=== PATIENT | male | born 1995 | race Caucasian/White ===

== ENCOUNTER 2021-12-26 10:55 | Day surgery (SDC) | payer BC, OTHER ==
[~2021-12-26] VITALS: Ht 182.9 cm; Wt 113.3 kg
[~2021-12-26 10:55] MED LIST: ALBU90OI INH; AMPDEX10CR PO; AMPDEX5 PO; ERGO50000 PO; ESCI20 PO; LORA.5 PO; PROP60 PO; VALA500 PO; ZOLOFT25 MG PO
--- NOTE | 2021-12-26 14:29 | NUR ---
12/26/21 1429 PAT GONSALEZ History, Chart, Medications and Allergies reviewed before start of procedure. Patient confirms NPO status and agrees with scheduled surgery. 3-LEAD EKG REVIEWED WITH PHYSICIAN PRIOR TO START OF PROCEDURE. MONITOR INTACT WITH CONTINUOUS PULSE OXIMETRY AND INTERMITTENT BP. PATIENT DETERMINED TO BE ASA APPROPRIATE FOR PROPOFOL SEDATION PRIOR TO START OF PROCEDURE BY DR. ZHANG.
--- NOTE | 2021-12-26 15:45 | NUR ---
Discharge instructions reviewed with patient. Patient verbalizes understanding. Copy given to patient to take home. Patient States Post-Procedure ride home has been arranged. Discharged via wheelchair to private car for ride home. ALL BELONGINGS RETURNED TO PATIENT THAT [facility].
== END 2021-12-26 15:55 | disposition home or self-care (01) ==
LOC: ORSCMMR 10:55 → ORD 14:00 → ORSCMMR 14:00
PROVIDERS: Surgery
PROC: 0DBE8ZX Excision of Large Intestine, Via Natural or Artificial Opening Endoscopic, Diagnostic (ICD-10-PCS; principal; 2021-12-26 14:00)
DX: K52.9 Noninfective gastroenteritis and colitis, unspecified (principal); F41.8 Other specified anxiety disorders; K50.00 Crohn's disease of small intestine without complications; K64.8 Other hemorrhoids; E66.9 Obesity, unspecified; Z68.34 Body mass index [BMI] 34.0-34.9, adult; Z79.899 Other long term (current) drug therapy
CPT/HCPCS: 88305; J2250; J2704; J7120

== ENCOUNTER 2022-03-05 23:38 | Emergency (ER) | payer BC, OTHER ==
[~2022-03-05] VITALS: Ht 182.9 cm; Wt 115.7 kg
[2022-03-06 01:10] LABS: BASOPHILS ABSOLUTE AUTO 0.04 K/mm3 (0.00-0.23); BASOPHILS PERCENT AUTO 0 % (0-2); EOSINOPHILS ABSOLUTE AUTO 0.01 K/mm3 (0.00-0.68); EOSINOPHILS PERCENT AUTO 0 % (0-6); Hematocrit 46.4 % (37.0-53.0); Hemoglobin 15.5 g/dL (13.5-17.5); IMMATURE GRAN ABSOLUTE AUTO 0.03 K/mm3 (0.00-0.10); IMMATURE GRAN PERCENT AUTO 0 % (0-1); LYMPHOCYTES PERCENT AUTO 10 % (21-46); MONOCYTES PERCENT AUTO 2 % (4-13); Mean Corpuscular HGB 29.3 pg (26.0-34.0); Mean Corpuscular HGB Conc 33.4 g/dL (31.5-36.5); Mean Corpuscular Volume 88 fL (80-100); Mean Platelet Volume 9.8 fL (9.1-12.4); NEUTROPHILS PERCENT AUTO 88 % (41-73); Platelet Count 277 K/mm3 (150-400); RDW Coefficient Variation 11.8 % (11.7-14.2); RDW Standard Deviation 37.8 fL (35.1-46.3); Red Blood Cell Count 5.29 M/mm3 (4.30-5.90); White Blood Cell Count 12.28 K/mm3 (4.00-11.30)
[2022-03-06 01:28] LABS: Alanine Aminotransfer (ALT/SGP 63 U/L (12-78); Albumin, Blood 4.1 g/dL (3.4-5.0); Alk Phos 67 U/L (50-136); Anion Gap 7 mmol/L (6-16); Aspartate Aminotrans (AST/SGOT 32 U/L (12-37); Bilirubin, Total 0.3 mg/dL (0.1-1.0); Blood Urea Nitrogen 13 mg/dL (8-24); Bun/Creatinine Ratio 16.9 (12.0-20.0); CO2, Blood 23 mmol/L (21-32); Calcium, Blood 9.5 mg/dL (8.5-10.1); Chloride, Blood 107 mmol/L (98-108); Creatinine, Blood 0.77 mg/dL (0.60-1.20); Glomerular Filtration Rate >60 (60-); Glucose, Blood 142 mg/dL (70-99); Potassium, Blood 4.9 mmol/L (3.5-5.5); Sodium, Blood 137 mmol/L (136-145); Total Protein, Blood 8.1 g/dL (6.4-8.2)
== END 2022-03-06 02:11 | disposition home or self-care (01) ==
LOC: ER 23:38
PROVIDERS: Emergency Medicine
DX: R10.9 Unspecified abdominal pain (principal); Z88.6 Allergy status to analgesic agent; Z79.899 Other long term (current) drug therapy
CPT/HCPCS: 36415; 80053; 83690; 85025; 96374; 96375; 99284-25; A9270; J1885; J2405

== ENCOUNTER 2022-05-14 22:37 | Emergency (ER) | payer BC, OTHER ==
[~2022-05-14] VITALS: Ht 182.9 cm; Wt 117.9 kg
[2022-05-15 00:06] LABS: Influenza A, PCR NEGATIVE (NEGATIVE); Influenza B, PCR NEGATIVE (NEGATIVE); Resp Syncytial Virus, PCR NEGATIVE (NEGATIVE); SARS-Cov-2 (COVID-19) PCR, MMC NEGATIVE (NEGATIVE)
== END 2022-05-15 01:25 | disposition home or self-care (01) ==
LOC: ER 22:37
PROVIDERS: Physician Assistant
DX: R51.9 Headache, unspecified (principal); Z88.8 Allergy status to other drugs, medicaments and biological substances; Z20.822 Contact with and (suspected) exposure to COVID-19
CPT/HCPCS: 0241U; 70450; 70496; 96374; 96375; J1200; J2765; J7030; Q9967

== ENCOUNTER 2022-05-17 22:40 | Emergency (ER) | payer BC, OTHER ==
[~2022-05-17] VITALS: Ht 182.9 cm; Wt 117.9 kg
[2022-05-17] MEDS ORDERED: PARO10 PO (23:43)
[2022-05-17] MEDS ORDERED: PARO10 (23:45)
[2022-05-17] MEDS ORDERED: PROP10 PO (23:48)
== END 2022-05-18 02:02 | disposition home or self-care (01) ==
LOC: ER 22:40
DX: G43.909 Migraine, unspecified, not intractable, without status migrainosus (principal); Z88.6 Allergy status to analgesic agent; Z79.899 Other long term (current) drug therapy
CPT/HCPCS: 36415; 70450; 96374; 96375; 99284-25; J1200; J1790; J1885

== ENCOUNTER 2023-03-12 16:32 | Emergency (ER) | payer OTHER ==
[~2023-03-12] VITALS: Ht 182.9 cm; Wt 108.9 kg
[~2023-03-12 16:32] MED LIST changes: +PARO10; +PARO10 PO; +PROP10 PO
[2023-03-12 16:51] VITALS: BP 143/86
[2023-03-13 16:11] LABS: HCV ANTIBODY Non Reactive (Non Reactive); HIV AB/P24 AG SCREEN Non Reactive (Non Reactive)
== END 2023-03-12 18:13 | disposition home or self-care (01) ==
LOC: ER 16:32
PROVIDERS: Emergency Medicine
DX: S60.410A Abrasion of right index finger, initial encounter (principal); Z77.21 Contact with and (suspected) exposure to potentially hazardous body fluids; Z88.6 Allergy status to analgesic agent; Z79.899 Other long term (current) drug therapy; W22.8XXA Striking against or struck by other objects, initial encounter
CPT/HCPCS: 86317; 86803; 87389; 99283